=== PATIENT | female | born 1970 | race Caucasian/White ===

== ENCOUNTER 2023-11-06 13:35 | Emergency (ER) | payer SELFPAY ==
[2023-11-06 13:41] VITALS: BP 96/68; PULSE 68; RESP 16; TEMP 36.7; O2SAT 98; BMI 21.3
[2023-11-06 13:42] VITALS: BP 126/74; PULSE 82; O2SAT 94
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
--- NOTE | 2023-11-06 14:02 | PC.NURSE ---
Patient's belongings brought to [facility] by security.
--- NOTE | 2023-11-06 15:17 | PC.NURSE ---
pt resting, resp even/unlabored.
[2023-11-06 18:00] VITALS: BP 119/86; PULSE 63; RESP 18; TEMP 36.6; O2SAT 98
[2023-11-06 20:00] VITALS: BP 115/80; PULSE 60; RESP 14; TEMP 36.5; O2SAT 98
--- NOTE | 2023-11-06 20:13 | MHC.EDTECH ---
This tech took over care of patient at 1900,rounds and vitals completed,patient was given a sandwich and ate 100%, patient is resting comfortably at this time.
[2023-11-07 08:27] VITALS: BP 168/100; PULSE 85; RESP 16; TEMP 36.9; O2SAT 98
--- NOTE | 2023-11-07 08:34 | PC.NURSE ---
Pt sleeping in rojo bed since this rn arrival at 7am. Was woken for discharge but fell back asleep. no complain of headache.
[2023-11-07 10:02] VITALS: BP 169/102; PULSE 99; RESP 20; TEMP 36.7; O2SAT 99
== END 2023-11-07 10:03 | disposition home or self-care (01) ==
PROVIDERS: Emergency Provider Emergency Medicine Emergency Medical Services
DX: F19.10 Other psychoactive substance abuse, uncomplicated (principal); F10.10 Alcohol abuse, uncomplicated; Y90.9 Presence of alcohol in blood, level not specified
CPT/HCPCS: 99284

== ENCOUNTER 2024-09-08 16:51 | Inpatient (IN) | payer MEDICAID, SELFPAY ==
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
--- NOTE | ~2024-09-08 | CT_ITS ---
CLINICAL HISTORY: Plateau fracture CT left knee without contrast Comparison: Left knee x-rays 09/08/2024 at 4:18 p.m. Findings: There is an acute comminuted depressed lateral tibial plateau fracture with maximum depression of the anterior aspect of the lateral tibial plateau of 1 cm. There is a fracture line extending to the anterolateral proximal tibial metaphysis. No evidence of dislocation. No acute fractures involving distal aspect of the femur, proximal aspect of the fibula or the patella. No dislocation. No degenerative changes. Moderately large joint effusion with fluid fat level consistent with lipohemarthrosis. Impression: 1. Comminuted depressed lateral tibial plateau fracture with no dislocation. 2. Knee joint lipohemarthrosis. This document has been electronically signed by: Shahnaz Boyle MD on 09/08/2024 22:19:07
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
[2024-09-08 16:56] VITALS: BP 131/77; BP 157/95; PULSE 64; RESP 18; TEMP 36.7; O2SAT 98; BMI 18.4
[2024-09-08 17:46] VITALS: BP 128/81; PULSE 67; RESP 14; TEMP 36.5; O2SAT 97
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
[2024-09-08 18:24] VITALS: BP 128/81; PULSE 67; RESP 14; TEMP 36.5; O2SAT 97
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
[2024-09-08 19:01] LABS: MANUAL DIFF FLAG NO
[2024-09-08 19:11] VITALS: BP 191/101; PULSE 64; RESP 20; TEMP 36.8; O2SAT 99
[2024-09-08 19:17] LABS: Anion Gap 13 (12-20); Blood Urea Nitrogen 10 mg/dL (9-16); Calcium 9.3 mg/dL (8.4-10.2); Carbon Dioxide 25 mmol/L (22-29); Chloride 106 mmol/L (96-108); Creatinine Clr Calc Pharmacy 82.1; Estimated Glomerular Filt Rate > 60; Potassium 5.0 mmol/L (3.3-5.1); Sodium 139 mmol/L (135-145)
[2024-09-08 19:19] LABS: Hematocrit 39.2 % (37.0-47.0); Hemoglobin 12.4 g/dl (12.0-16.0); Imm Gran Abs Auto 0.02 X10*3/uL (0.00-0.03); Imm Gran Pct Auto 0.3 % (0.0-0.4); Lymphocytes Absolute Auto 2.0 X10*3/uL (1.2-4.9); Mean Corpuscular HGB Conc 31.6 g/dl (31.0-35.0); Mean Corpuscular Hemoglobin 28.5 pg (27.0-33.0); Mean Corpuscular Volume 90.1 fL (80.0-98.0); NRBC Abs Auto 0.000 X10*3/uL (0.0-0.012); NRBC Pct Auto 0.0 /100WBC (0.0-0.2); Platelet Count 308 X10*3/uL (160-400); Red Blood Count 4.35 X10*6/uL (4.20-5.50); White Blood Count 7.3 X10*3/uL (4.8-10.8)
[2024-09-08] MEDS: iohexoL 350 MG/ML 100 ML INFUS..BTL 85 ML IV (19:53)
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
[2024-09-08 22:54] VITALS: BP 194/105; PULSE 64; RESP 20; TEMP 37.3; O2SAT 98
[2024-09-09] VITALS (16 sets, daily range): BP systolic 142–210; BP diastolic 87–122; PULSE 61–86; RESP 16–19; TEMP 37.1–37.5; O2SAT 97–100; BMI 15.1
--- NOTE | 2024-09-09 | ECG_ITS ---
Test Reason : DrElicia Requested Blood Pressure : */* mmHG Vent. Rate : 70 BPM Atrial Rate : 70 BPM P-R Int : 130 ms QRS Dur : 90 ms QT Int : 438 ms P-R-T Axes : -12 3 -2 degrees QTcB Int : 473 ms Normal sinus rhythm Moderate voltage criteria for LVH, may be normal variant ( R in aVL , Sokolow-Martinez ) Cannot rule out Inferior infarct , age undetermined Abnormal ECG No previous ECGs available Referred By: Sharon Deleon Electronically Signed By: JANY GAITAN
[2024-09-09] MEDS: 0.9 % Sodium Chloride Flush 3 ML SYRINGE IVFLUSH ×3 (00:06→16:17)
--- NOTE | 2024-09-09 01:35 | PC.NURSE ---
pt medicated according to mar with iv antibiotics per dr smith pt does not need blood cultures prior to antibiotic administration dr smith made aware of bp 187/106 no new orders at this time
[2024-09-09 04:31] LABS: Hematocrit 38.8 % (37.0-47.0); Hemoglobin 12.9 g/dl (12.0-16.0); Imm Gran Abs Auto 0.09 X10*3/uL (0.00-0.03); Imm Gran Pct Auto 0.5 % (0.0-0.4); Lymphocytes Absolute Auto 0.6 X10*3/uL (1.2-4.9); MANUAL DIFF FLAG SCAN; Mean Corpuscular HGB Conc 33.2 g/dl (31.0-35.0); Mean Corpuscular Hemoglobin 28.5 pg (27.0-33.0); Mean Corpuscular Volume 85.7 fL (80.0-98.0); NRBC Abs Auto 0.000 X10*3/uL (0.0-0.012); NRBC Pct Auto 0.0 /100WBC (0.0-0.2); Platelet Count 375 X10*3/uL (160-400); Red Blood Count 4.53 X10*6/uL (4.20-5.50); SCAN SMEAR FLAG 1; White Blood Count 18.0 X10*3/uL (4.8-10.8)
--- NOTE | 2024-09-09 04:46 | MHC.EDTECH ---
security placed belongings on shelf 1
[2024-09-09 04:48] LABS: Anion Gap 15 (12-20); Blood Urea Nitrogen 8 mg/dL (9-16); Calcium 9.0 mg/dL (8.4-10.2); Carbon Dioxide 21 mmol/L (22-29); Chloride 101 mmol/L (96-108); Creatinine Clr Calc Pharmacy 93.4; Estimated Glomerular Filt Rate > 60; Potassium 4.0 mmol/L (3.3-5.1); Sodium 133 mmol/L (135-145)
--- NOTE | 2024-09-09 04:59 | PC.NURSE ---
Dev Technical Mgr obtained pt belongings from ED staff. Pt belongings placed in 4th floor lockers.
--- NOTE | 2024-09-09 06:23 | PC.NURSE ---
b/p 189/105, aware with no new orders.
--- NOTE | 2024-09-09 06:50 | PC.NURSE ---
Pt medicated pr MAR for elevated b/p. Pt denies headache.
--- NOTE | 2024-09-09 07:14 | PC.NURSE ---
pt currently sleeping, rr equal/non labored, vitals currently stable, BP has gone down to 142/87, call chamberlain within reach, plan of care ongoing
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
--- NOTE | 2024-09-09 10:09 | PHA.MEDREC ---
Addendum entered by Trisha Pino RPh 09/09/24 10:32: Reviewed Original Note: Pharmacy Consult ? Medication Reconciliation Pharmacy has completed the medication reconciliation.
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
[2024-09-09] MEDS: Lactated Ringers 1,000 ML 100 ML IVCONT ×2 (10:24→19:33)
--- NOTE | 2024-09-09 12:25 | PC.NURSE ---
Bedside nurse swallow evaluation ordered, unable to obtain at this time as pt is lethargic and drowsy MD Maya aware.
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
--- NOTE | 2024-09-09 15:59 | PC.NURSE ---
Addendum entered by Annalisa Parish RN 09/09/24 16:50: 30 minutes post IVP hydrazine BP 170/110 manually. Original Note: MD Ortiz made aware pts BP is elevated 15:26 210/122 HR 86, at 15:55 BP 188/110. Pt continues to be drowsy, alertness waxes and wanes, at times pt is alert to voice opens eyes and says a few words, other times pt alert to light touch on chest and voice. Pt was able to wake up and verbalize she had to void, used the bedpan and then fell back to sleep. Ordered PRN IVP Hydralazine and PO Amlodipine, unable to administer amlodipine at this point as pt is to drowsy. All safety measures in place.
[2024-09-09 16:23] LABS: Cannabinoid Screen Urine Not Detected (Not Detect)
[2024-09-10] VITALS (9 sets, daily range): BP systolic 160–180; BP diastolic 82–115; PULSE 90–108; RESP 18–20; TEMP 36.6–37.5; O2SAT 95–100
[2024-09-10] MEDS: 0.9 % Sodium Chloride Flush 3 ML SYRINGE IVFLUSH (00:46)
[2024-09-10 05:44] LABS: MANUAL DIFF FLAG NO
[2024-09-10 05:50] LABS: Hematocrit 39.8 % (37.0-47.0); Hemoglobin 13.8 g/dl (12.0-16.0); Imm Gran Abs Auto 0.06 X10*3/uL (0.00-0.03); Imm Gran Pct Auto 0.4 % (0.0-0.4); Lymphocytes Absolute Auto 0.8 X10*3/uL (1.2-4.9); Mean Corpuscular HGB Conc 34.7 g/dl (31.0-35.0); Mean Corpuscular Hemoglobin 28.2 pg (27.0-33.0); Mean Corpuscular Volume 81.2 fL (80.0-98.0); NRBC Abs Auto 0.000 X10*3/uL (0.0-0.012); NRBC Pct Auto 0.0 /100WBC (0.0-0.2); Platelet Count 365 X10*3/uL (160-400); Red Blood Count 4.90 X10*6/uL (4.20-5.50); White Blood Count 13.8 X10*3/uL (4.8-10.8)
[2024-09-10 06:18] LABS: Anion Gap 16 (12-20); Blood Urea Nitrogen 11 mg/dL (9-16); Calcium 9.0 mg/dL (8.4-10.2); Carbon Dioxide 21 mmol/L (22-29); Chloride 99 mmol/L (96-108); Creatinine Clr Calc Pharmacy 76.2; Estimated Glomerular Filt Rate > 60; Potassium 3.6 mmol/L (3.3-5.1); Sodium 132 mmol/L (135-145)
[2024-09-10] MEDS: Lactated Ringers 1,000 ML 100 ML IVCONT (06:36)
--- NOTE | 2024-09-10 07:19 | PC.NURSE ---
0715 when doing bedside safety checks this RN noted to find 850ml of yellow bilious vomit in bedside wash basin. Pt continues to be lethargic, opens eyes to voice and light touch, BP continues to be elevated, temp 99.4 orally. All safety measures in place. MD Deleon made aware via tiger text.
[2024-09-10 07:54] LABS: Alanine Aminotransferase 13 U/L (0-31); Albumin Level 3.8 g/dL (3.5-5.0); Alkaline Phosphatase 59 U/L (39-117); Aspartate Amino Transferase 22 U/L (5-31); Total Protein 6.9 g/dL (6.5-8.0)
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
[2024-09-10 08:03] LABS: VBG HCO3 23 mmol/L (22-26); VBG O2 % Saturation 100.0 %
[2024-09-10 08:03] LABS: Ammonia 46 umol/L (13-55)
[2024-09-10 08:04] LABS: Venous Blood Gas Refer to POC result
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
--- NOTE | 2024-09-10 10:55 | MHC.SLORD ---
Speech Language Pathology Order Status: BEATER ROOM HELPER to assess when pt able to participate. Pt remains lethargic and had episode of vomiting. See RN note.
--- NOTE | 2024-09-10 11:36 | PHA.PROG ---
Admission Date/Time: September 08, 2024 21:53 Indication: COMMUNITY ENGAGEMENT COORDINATOR infection Weight in k.6 kg Adjusted body weight in Kg: [place] body weight in Kg: Obesity Dosing Indication % IBW: Serum Creatinine - Last 168 Hours 09/08/24 09/09/24 09/10/24 18:57 04:25 05:18 Creatinine 0.66 0.58 0.58 Estimated CrCl and GFR - Last 168 Hours 09/08/24 09/09/24 09/10/24 18:57 04:25 05:18 Estim Creat Clear Calc 82.1 93.4 76.2 Estimated GFR > 60 > 60 > 60 Vancomycin Loading Dose: 1000mg x 1 Current Vancomycin Dosing Regimen: 750 mg Q12H Vancomycin Monitoring using AUC goal of 400 - 600 range with trough as surrogate marker: 475 mg/L Date and Time for next Vancomycin Level to be drawn: 09/11 @2100 Pharmacist Comments on Vancomycin Plan: Predicted trough of 14mg/L Vancomycin dosing will take advantage of [employer] as a clinical decision support tool that uses Bayesian modeling to calculate individual patient's pharmacokinetic parameters and forecast the patient's drug concentration time course with the target goal AUC 24 range of 400 - 600 mg/L/hr.
--- NOTE | 2024-09-10 12:29 | PC.NURSE ---
Addendum entered by Annalisa Parish RN 09/10/24 12:43: Pt was able to take liquid Methadone PO without complications. Original Note: Pt has been following basic commands. Was able to open eyes and take water from a spoon. Pt was able to hold water in mouth and swallow without prompting, no coughing noted, MD Ortiz aware, ok to give pt PO methadone.
[2024-09-10] MEDS: methADONE HCl 20 MG/2 ML ORAL.CONC 10 MG PO (12:38)
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
--- NOTE | 2024-09-11 00:26 | PC.NURSE ---
This RN assumed care of patient at 19:00. Patient was sleeping when I came in for assessment, respirations even & unlabored. She is very somnolent, only arousable to touch and name, when asking questions patient smiles and nods her head but no verbal response and goes right back to sleep. Patient able to turn herself in bed. Telesitter in place for safety.
[2024-09-11 05:46] LABS: MANUAL DIFF FLAG NO
[2024-09-11 05:51] LABS: Hematocrit 35.7 % (37.0-47.0); Hemoglobin 12.0 g/dl (12.0-16.0); Imm Gran Abs Auto 0.05 X10*3/uL (0.00-0.03); Imm Gran Pct Auto 0.5 % (0.0-0.4); Lymphocytes Absolute Auto 1.0 X10*3/uL (1.2-4.9); Mean Corpuscular HGB Conc 33.6 g/dl (31.0-35.0); Mean Corpuscular Hemoglobin 28.4 pg (27.0-33.0); Mean Corpuscular Volume 84.6 fL (80.0-98.0); NRBC Abs Auto 0.000 X10*3/uL (0.0-0.012); NRBC Pct Auto 0.0 /100WBC (0.0-0.2); Platelet Count 335 X10*3/uL (160-400); Red Blood Count 4.22 X10*6/uL (4.20-5.50); White Blood Count 11.1 X10*3/uL (4.8-10.8)
[2024-09-11 06:04] LABS: Anion Gap 11 (12-20); Blood Urea Nitrogen 17 mg/dL (9-16); Calcium 8.4 mg/dL (8.4-10.2); Carbon Dioxide 20 mmol/L (22-29); Chloride 108 mmol/L (96-108); Creatinine Clr Calc Pharmacy 73.7; Estimated Glomerular Filt Rate > 60; Potassium 3.3 mmol/L (3.3-5.1); Sodium 136 mmol/L (135-145)
[2024-09-11 06:57] VITALS: BP 150/90; PULSE 92; RESP 16; TEMP 38.1; O2SAT 98
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
[2024-09-11 09:20] VITALS: TEMP 37.1
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
[2024-09-11 09:56] VITALS: BMI 17.9
[2024-09-11 09:58] VITALS: BMI 17.9
--- NOTE | 2024-09-11 10:15 | MHC.CLN ---
NUTRITION CURRENTLY NPO. DIFFICULTY STAYING AWAKE. QUALIFIES MODERATELY MALNOURISHED IN THE CONTEXT OF SOCIAL BEHAVIORAL CIRCUMSTANCES. MILD DEPLETION OF BODY FAT AND MUSCLE MASS NOTED. WEIGHT WITH SOFT SPLINT=51.8 KG, BMI=17.9. POOR PO REPORTED PRIOR TO ADM AND NPO SINCE ADM. SKIN WITH BLISTERS TO RIGHT THIRD TOE. FOLLOW FOR DIET ADVANCEMENT AND PLAN OF CARE. SEE CLINICAL NUTRITION ASSESSMENT 09/11/24.
--- NOTE | 2024-09-11 10:28 | MHC.SL.SWA ---
Speech Pathologist Impression: Missing dentition but no oral phase issues. Oropharyngeal swallow WNL Risk of Aspiration Due to: Lethargy Dysphasia Diet Status: Recc REGULAR diet with THIN liquids, assist with setup if needed, TRANSITION COACH followup 2-3x as indicated Liquid Consistency and Strategies for Safe Swallow: Liquid Intake Recommendation: Thin Liquid Intake Strategies: Solid Food Consistency: Dietary Recommendations: Regular Additional Modifications to Solid Foods: Oral Medication Intake: Whole with Liquid Please contact the pharmacy regarding appropriate crushable or liquid drug formulations that are available whenever modified delivery is recommended. Compensatory Strategies and Precautions to be Taken for Safe Swallow: Supervision While Eating and Drinking for Safe Swallow: Intermittent Supervision Foods to Avoid: Swallowing Recommended Treatments: Recommendation for Speech: Inpatient Speech Therapy Comment: Oropharyngeal coordination unremarkable; despite missing dentition, oral prep phase adequate for bolus formation/manipulation. Pharyngeal swallow timely and efficient. No overt s/s of aspiration observed during bedside swallow evaluation as pt tolerated regular solids and thin liquids efficiently. CXR concerning for aspiration PNA upon admission; TRANSITION COACH will follow to monitor. Frequency/Duration: Followup 2-3x to assess for PO tolerance and adjust diet if indicated Date Range for Service Req: Timeline to reassess: Business Functional Analyst Clinican/Clinical Fellow: No Supervisory Statement: I have reviewed and agree with the student/clinical fellow's documentation: N/A Speech Language Pathologist: Mckayla Oconnell M.S., [facility]-TRANSITION COACH
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
[2024-09-11 15:22] VITALS: BP 159/95; PULSE 96; RESP 16; TEMP 36.7; O2SAT 96
--- NOTE | 2024-09-11 21:33 | HE.PHANOTE ---
KATHIE Changed dosing to 750mg Q8H per subtherapeutic trough. New predicted trough 15.1, AUC 535. Next trough to be drawn 09/12 @1999.
[2024-09-12] VITALS: BP 142/77; PULSE 75; RESP 18; TEMP 36.6; O2SAT 97
[2024-09-12 06:37] LABS: Creatinine Clr Calc Pharmacy 95.5; Estimated Glomerular Filt Rate > 60
[2024-09-12 07:33] VITALS: BP 155/95; PULSE 82; RESP 18; TEMP 36.6; O2SAT 100
[2024-09-12] MEDS: 0.9 % Sodium Chloride Flush 3 ML SYRINGE IVFLUSH ×3 (08:03→22:08)
[2024-09-12] MEDS: methADONE HCl 20 MG/2 ML ORAL.CONC 10 MG PO ×2 (09:38→18:07)
--- NOTE | 2024-09-12 11:59 | HO.SKINPHOTO ---
Location: 3rd right toe - open to air
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
--- NOTE | 2024-09-12 13:46 | MHC.SL.SWA ---
Risk of Aspiration Due to: PNA Dysphasia Diet Status: regular/thin Liquid Consistency and Strategies for Safe Swallow: Liquid Intake Recommendation: Thin Solid Food Consistency: Dietary Recommendations: Regular Oral Medication Intake: Whole with Liquid Please contact the pharmacy regarding appropriate crushable or liquid drug formulations that are available whenever modified delivery is recommended. Compensatory Strategies and Precautions to be Taken for Safe Swallow: Sitting Upright (90 deg) Supervision While Eating and Drinking for Safe Swallow: Intermittent Supervision Recommendation for Speech: Inpatient Speech Therapy Comment: Oropharyngeal coordination unremarkable; despite missing dentition, oral prep phase adequate for bolus formation/manipulation. Pharyngeal swallow timely and efficient. No overt s/s of aspiration observed during bedside swallow evaluation on 09/11 and [facility] f/u on 09/12 as pt tolerated regular solids and thin liquids efficiently. CXR concerning for aspiration PNA upon admission; [facility] will follow to monitor. Frequency/Duration: Followup 1-2x to assess for PO tolerance and adjust diet if indicated Rail Filler Clinican/Clinical Fellow: No Supervisory Statement: I have reviewed and agree with the student/clinical fellow's documentation: N/A Speech Language Pathologist: Denise Nuñez M.A., CCC-[facility]
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
[2024-09-12 15:05] VITALS: BP 114/77; PULSE 81; RESP 12; TEMP 36.6; O2SAT 98
[2024-09-12 23:27] VITALS: BP 119/82; PULSE 67; RESP 18; TEMP 36.8; O2SAT 98
[2024-09-13 06:33] LABS: Creatinine Clr Calc Pharmacy 99.2; Estimated Glomerular Filt Rate > 60
[2024-09-13 07:41] VITALS: BP 127/84; PULSE 69; RESP 17; TEMP 37.1; O2SAT 99
[2024-09-13] MEDS: methADONE HCl 20 MG/2 ML ORAL.CONC 10 MG PO (08:28)
[2024-09-13] MEDS: 0.9 % Sodium Chloride Flush 3 ML SYRINGE IVFLUSH (08:32)
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
--- NOTE | 2024-09-13 10:53 | MHC.SLORD ---
Speech Language Pathology Order Status: Pt tolerating regular diet, no dysphagia present. Pt is edentulous but able to formulate bolus with regular solids, choosing preferred foods. No further [employer] tx indicated. Pt in agreement with d/c from [employer].
[2024-09-13] MEDS: methADONE HCl 20 MG/2 ML ORAL.CONC PO (11:47)
[2024-09-13] MEDS: Naloxone HCl Nasal TAKE HOME 4 MG SPRAY 8 MG NOSTRILALT (12:58)
[2024-09-18 00:59] LABS: VDRL Qualitative CSF Nonreactive (Nonreactive)
== END 2024-09-13 13:15 | disposition home or self-care (01) | DRG 342 ==
LOC: HO.ED 22:49 → HO.EDOVER 22:52 → HO.S3 09-09 08:28
PROVIDERS: Student in an Organized Health Care Education/Training Program; Admitting Provider Student in an Organized Health Care Education/Training Program; Emergency Provider Emergency Medicine Emergency Medical Services; PCP Internal Medicine; Visit Provider Nurse Practitioner Acute Care
DX: S82.142A Displaced bicondylar fracture of left tibia, initial encounter for closed fracture (principal); J69.0 Pneumonitis due to inhalation of food and vomit; G92.8 Other toxic encephalopathy; E44.0 Moderate protein-calorie malnutrition; I10 Essential (primary) hypertension; F11.93 Opioid use, unspecified with withdrawal; R91.1 Solitary pulmonary nodule; V03.00XA Pedestrian on foot injured in collision with car, pick-up truck or van in nontraffic accident, initial encounter; Y92.414 Local residential or business street as the place of occurrence of the external cause; Z68.1 Body mass index [BMI] 19.9 or less, adult
CPT/HCPCS: 36415; 62328; 70450; 71260; 72125; 73562; 73700; 74177; 80048; 80053; 80202; 80307; 82140; 82565; 82803; 82945; 83605; 84157; 85025; 86592; 86850; 86900; 86901; 87015; 87040; 87070; 87205; 92526; 92610; 93005; 97110; 97116; 97162; 97166; 97530; 97535; 99285; J0360; J0696; J1171; J1650; J1956; J2405; J3370; J7120; Q9967

== ENCOUNTER → 2024-09-08 17:20 | Outpatient (BNV) | payer SELFPAY | PROVIDERS: Emergency Provider Emergency Medicine Emergency Medical Services; PCP Internal Medicine; Visit Provider Specialist | DX: R91.8 Other nonspecific abnormal finding of lung field (principal); G89.11 Acute pain due to trauma; S82.121A Displaced fracture of lateral condyle of right tibia, initial encounter for closed fracture | CPT/HCPCS: 70450; 71260; 72125; 73562; 73700; 74177 ==

== ENCOUNTER 2024-09-08 21:53 | Outpatient (BNV) | payer SELFPAY | END 2024-09-11 10:45 | PROVIDERS: Admitting Provider Student in an Organized Health Care Education/Training Program; Emergency Provider Emergency Medicine Emergency Medical Services; PCP Internal Medicine; Visit Provider Radiology Diagnostic Radiology | DX: R41.82 Altered mental status, unspecified (principal); R11.10 Vomiting, unspecified | CPT/HCPCS: 62328 ==

== ENCOUNTER 2024-09-08 21:53 | Outpatient (BNV) | payer SELFPAY | END 2024-09-09 10:37 | PROVIDERS: Admitting Provider Student in an Organized Health Care Education/Training Program; Emergency Provider Emergency Medicine Emergency Medical Services; PCP Internal Medicine; Visit Provider Internal Medicine | DX: R94.31 Abnormal electrocardiogram [ECG] [EKG] (principal); Z13.6 Encounter for screening for cardiovascular disorders | CPT/HCPCS: 93010 ==

== ENCOUNTER 2024-09-08 21:53 | Outpatient (BNV) | payer SELFPAY | END 2024-09-10 08:20 | PROVIDERS: Admitting Provider Student in an Organized Health Care Education/Training Program; Emergency Provider Emergency Medicine Emergency Medical Services; PCP Internal Medicine; Visit Provider Radiology Diagnostic Radiology | DX: R41.82 Altered mental status, unspecified (principal) | CPT/HCPCS: 70450 ==

== ENCOUNTER → 2024-09-08 21:53 | Outpatient (BNV) | payer SELFPAY | PROVIDERS: Admitting Provider Student in an Organized Health Care Education/Training Program; Emergency Provider Emergency Medicine Emergency Medical Services; PCP Internal Medicine | DX: S82.142A Displaced bicondylar fracture of left tibia, initial encounter for closed fracture (principal) | CPT/HCPCS: 99222; 99232 ==

== ENCOUNTER → 2024-09-08 21:53 | Outpatient (BNV) | payer SELFPAY | PROVIDERS: Admitting Provider Student in an Organized Health Care Education/Training Program; Emergency Provider Emergency Medicine Emergency Medical Services; PCP Internal Medicine; Visit Provider Nurse Practitioner Psychiatric/Mental Health | DX: F11.90 Opioid use, unspecified, uncomplicated (principal) | CPT/HCPCS: 99222 ==

== ENCOUNTER → 2024-09-08 21:53 | Outpatient (BNV) | payer SELFPAY | PROVIDERS: Admitting Provider Student in an Organized Health Care Education/Training Program; Emergency Provider Emergency Medicine Emergency Medical Services; PCP Internal Medicine; Visit Provider Student in an Organized Health Care Education/Training Program | DX: S82.142A Displaced bicondylar fracture of left tibia, initial encounter for closed fracture (principal); G92.8 Other toxic encephalopathy; F19.10 Other psychoactive substance abuse, uncomplicated | CPT/HCPCS: 99222; 99233 ==

== ENCOUNTER 2024-09-18 13:17 | Emergency (ER) | payer MEDICAID, SELFPAY ==
[2024-09-18] VITALS (8 sets, daily range): BP systolic 100–126; BP diastolic 56–91; PULSE 74–112; RESP 14–18; TEMP 36.6–37; O2SAT 95–100; BMI 15.1
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
--- NOTE | 2024-09-18 14:27 | ED.OVERDOSE ---
HPI - Overdose General Chief Complaint: Overdose Stated Complaint: HEROIN OVERDOSE, NARCAN GIVEN, W/GOOD RESULTS Time Seen by Provider: 09/18/24 13:35 Source: patient and EMS Mode of arrival: EMS Limitations: no limitations History of Present Illness ED Provider: DR. Martinez HPI Narrative: 54-year-old female with history of substance abuse found unresponsive in the street by bystander after possible OD on heroin patient was given 4 mg Narcan intranasally by bystander when EMS arrived patient was given 1 mg Narcan IV, patient admit to smoking 1 bag of heroin earlier today, patient is homeless and have been walking for many hours in the hot weather patient feels dehydrated and very thirsty, initially found to be hypotensive by EMS was given a L fluids, patient in the ED is drinking plenty of oral water (60 oz.) feels very thirsty. Blood pressure has improved, patient has no complaint of headache, no blurry vision, no CP, no SOB, no abdominal pain, no fever, no chills. Patient declined that she struck her head or neck. No SI, no HI, no hallucination. Related Data Previous Rx's ?Medication ?Instructions ?Recorded amlodipine 10 mg tablet 10 mg PO DAILY #30 tabs 09/13/24 oxycodone 5 mg tablet 5 mg PO Q8H PRN pain #15 tabs 09/13/24 Allergies Allergy/AdvReac Type Severity Reaction Status Date / Time No Known Allergies (No Known Allergy Verified 09/18/24 13:42 Allergies*) Review of Systems Review of Systems: All other systems are reviewed and are negative Constitutional: Reports as per HPI and Reports no additional constitutional complaints Eyes: Reports as per HPI and Reports no additional eye complaints Reports system reviewed and no additional complaints, except as documented Cardiovascular: Reports as per HPI and Reports no additional cardiovascular complaints Respiratory: Reports as per HPI and Reports no additional respiratory complaints Gastrointestinal: Reports as per HPI and Reports no additional gastrointestinal complaints Genitourinary: Reports no additional female genitourinary complaints Musculoskeletal: Reports no additional musculoskeletal complaints Skin/Breast: Reports system reviewed and no additional complaints, except as docu Psychiatric: Reports no additional psychiatric complaints Endocrine: Reports no additional endocrine complaints Hematologic/Lymphatic: Reports no additional hematologic/lymphatic complaints Allergic/Immunologic: Reports no additional allergic/immunologic complaints Reports system reviewed and no additional complaints, except as documented and Reports Abnormal speech present PMFSH Past Medical History Medical History Alcohol abuse Active substance abuse Social History Social History Housing: Homeless Alcohol intake: current Comment: bedfast currently Patient Tobacco Use Status: Tobacco use Unknown Smoked in Last 30 Days: Yes Use of substances other than those prescribed or required for medical reasons: Yes Substance Use Type: Heroin Advance Directives: No Advance Directives Information Provided: Yes Do you have a plan to hurt others: No Plan Patient : No Physical Exam Vital Signs: Vital Signs: Last Vital Signs Temp 98.6 F 09/18/24 15:08 Pulse 81 09/18/24 15:08 Resp 16 09/18/24 15:08 BP 113/78 09/18/24 15:08 Pulse Ox 95 09/18/24 15:08 O2 Del Method Room Air 09/18/24 15:08 BMI result Body Mass Index 15.1 Vital signs have been reviewed and appear to be correct. Blood pressure elevated. Heart rate normal. Respiratory rate normal. Temperature normal. Oxygen saturation normal. Appearance: Alert. Oriented X3. No acute distress. Head: Normal external exam. Normocephalic. Atraumatic. No Coyne signs noted. No raccoon eyes noted Eyes: PERRLA. EOMI. Conjunctiva and sclera normal. Eyelids normal. ENT: TM's Normal. Pharynx normal. Uvula midline. Moist mucous membranes. No trismus noted. No drooling noted. No muffled voice noted. Neck: Normal inspection. Neck supple. FROM. No adenopathy. Thyroid Normal. No meningeal signs. No neck mass noted. CVS: Normal heart rate and rhythm. Heart sound normal. No murmurs noted. Pulses normal throughout. Respiratory: No respiratory distress. Painless inspiration. Breath sounds normal. No wheezes/rales/rhonchi noted. Chest nontender. No accessory muscle usage noted or decreased air movement noted. Abdomen: Soft and nontender. Bowel sounds normal in all 4 quadrants. No distention noted. No organomegaly noted. No visible injury noted. Back: No CVA tenderness. Full range of motion noted. Skin: Skin warm and dry. Normal skin color. Normal skin turgor. No rashes/lesions/lacerations noted. Extremities: No lower extremity edema. Extremities exhibit normal range of motion. Extremities nontender. Neuro: Oriented X 3. Cranial nerve exam: II-XII are grossly intact No motor deficit. No sensory deficit. Reflexes normal. Course Reevaluation(s) Reevaluation #1: 54-year-old female brought in by EMS after OD on heroin, patient has no SI or HI, patient declined recovery team effort to detox. Patient thinks she was dehydrated patient is homeless staying with her friend for now has not been eating or drinking enough, the patient drank plenty of fluids in the ED improvement of blood pressure after dehydration, no chest pain, no abdominal pain, no SI, no HI. Patient is requesting to be discharged. Was given Narcan to take home. Time: 15:42 Medical Decision Making Differential Diagnosis Differential Diagnoses: The differential diagnosis associated with the presentation includes (Dehydration, electrolyte derangement, severe anemia, heroin overdose, head injury.) Admission/Observation Consideration of admission/observation: Escalation of care including admission/observation considered Discharge Plan Discharge Clinical Impression: Active substance abuse, Drug overdose, Acute dehydration Patient Disposition: Home, Self-Care Instructions: Adult Overdose (ED), Dehydration (ED) Additional Instructions: Drink plenty of fluids Prescriptions: No Action amlodipine 10 mg Tablet 10 mg PO DAILY Qty: 30 0RF Protocol: Hold for SBP< HOLD for SBP < : 90 oxycodone 5 mg tablet 5 mg PO Q8H PRN (Reason: pain) Qty: 15 0RF Rx Instructions: Partial Fill upon patient request. Referrals: Juancho Farias MD [Primary Care Provider, Internal Medicine] Print Language: Hungarian
--- NOTE | 2024-09-18 14:32 | MHC.EDTECH ---
Patient was changed over,security at bedside,all belongings secured and locked in the [facility] shelf 1. Patient has her cane at bedside, crack pipe taken by security.
--- OUTSIDE RECORDS SUMMARY | 2024-09-18 14:49 | XMS_ITS | Clinical Summary ---
Author Organization [facility] Address [address] [place] [address] Care Team Providers Care Carpenter Helper Name Role Phone Jolie Mcgrath NP Primary Care Provider [phone] Source Comments PLEASE NOTE, if this patient is a minor, it may be UNLAWFUL to discuss sensitive information that is contained in these records (such as FAMILY PLANNING, MENTAL HEALTH or SUBSTANCE ABUSE) with the minor patient's parent or other person without the patient's specific authorization.[facility] Allergies No known active allergies Medications diazepam (VALIUM) 5 mg tablet Take 5 mg by mouth 2 (two) times daily as needed. Active zolpidem (AMBIEN) 10 mg tablet Take 10 mg by mouth nightly at bedtime as needed. Take immediately before bedtime. Active oxyCODONE-acetamin ophen (ROXICET) 5-325 mg/5 mL solutionIndication s:pain Take 5 mL by mouth every 4 (four) hours as needed. Indications: Pain Active traZODone (DESYREL) 150 mg tablet Take 150 mg by mouth nightly at bedtime. Active albuterol sulfate hfa (PROVENTIL HFA) 90 mcg/actuation inhalerIndications :SOB (shortness of breath) Inhale 2 Puffs into the lungs every 4 (four) hours as needed for shortness of breath or wheezing. 1 Inhaler 0 01/18/20 13 Active clonazePAM (KLONOPIN) 1 mg tabletIndications: anxiety Take 1 mg by mouth 2 (two) times daily as needed. Indications: anxiety Active FLUoxetine (PROZAC) 40 mg capsuleIndications :major depressive disorder Take 40 mg by mouth once daily. Indications: Major Depressive Disorder Active QUEtiapine (SEROQUEL) 100 mg tabletIndications: voices Take 100 mg by mouth nightly at bedtime. Indications: voices Active dextromethorphan-g uaiFENesin (ROBITUSSIN DM) 10-100 mg/5 mL liquidIndications: Cough Take 5 mL by mouth every 4 to 6 (four to six) hours as needed for cough. 1 Bottle 1 05/09/19 14 Active gabapentin (NEURONTIN) 800 mg tabletIndications: Displacement of intervertebral disc, site unspecified, without myelopathy Take 1 Tab by mouth 3 (three) times daily. 90 Tab 2 06/15/19 14 Active fluticasone (FLONASE) 50 mcg/actuation nasal sprayIndications:R rosy Place 2 Sprays into the nostril(s) once daily. 16 g 2 07/14/19 14 Active Active Problems Problem Noted Date Diagnosed Date Displacement of intervertebr al disc, site unspecified, without myelopathy 02/14/2013 Arthritis of ankle 02/14/2013 Anxiety and depression 11/24/2012 Lumbar disc disease 07/04/2009 Chronic low back pain Family History Medical History Relation Name Comments Diabetes Brother Heart Problems Brother Hypertension Brother Hypertension Father Diabetes Mother Hypertension Mother Mental illness Mother Hypertension Sister Relation Name Status Comments Brother Father Mother Sister Social History Tobacco Use Types Packs/Day Years Used Date Smoking Tobacco: Every Day Cigarettes 3 7 Smokeless Tobacco: Never Alcohol Use Standard Drinks/Week Comments No 0 (1 standard drink = 0.6 oz pur e alcohol) Comments No Sex and Gender Information Value Date Recorded Sex Assigned at Not on file Legal Sex Female 5:19 AM PDT Gender Identity Not on file Sexual Orientation Not on file Last Filed Vital Signs Vital Sign Reading Time Taken Comments Blood Pressure 119/74 05/09/2013 3:29 PM EST Pulse 65 05/09/2013 3:29 PM EST Temperature 36.6 C (97.8 F) 05/09/2013 3:29 PM EST Respiratory Rate 16 02/14/2013 3:28 PM EST Oxygen Saturation - - Inhaled Oxygen Concentration - - Weight 80.3 kg (177 lb) 05/09/2013 3:29 PM EST Height 170.2 cm (5' 7 ) 05/09/2013 3:29 PM EST Body Mass Index 27.72 05/09/2013 3:29 PM EST Plan of Treatment Not on file Insurance [place] MEDICA[place] Care Teams Carpenter Helper Relationship Specialty Start Date End Date Jolie Mcgrath NP [phone] [place] [id number] PCP - General Internal Medicine 11/24/12
--- NOTE | 2024-09-18 15:17 | MHC.CARE ---
CARE Team met with Pt after consulted for a SUDE secondary to opiate overdose. Pt was sleeping and was easily stirred awake for a conversation. She denied wanting to participate in a SUDE, she also declined wanting services/resources for recovery. Case was discussed with ED provider.
[2024-09-18] MEDS: Naloxone HCl Nasal TAKE HOME 4 MG SPRAY 8 MG NOSTRILALT (16:09)
--- NOTE | 2024-09-18 16:18 | PC.NURSE ---
pt given take home nasal narcan, pt to discharge home, tech to get pts belongings and she will discharge.
== END 2024-09-18 16:40 | disposition home or self-care (01) ==
PROVIDERS: Emergency Provider Emergency Medicine; PCP Internal Medicine
DX: T40.1X1A Poisoning by heroin, accidental (unintentional), initial encounter (principal); Y92.9 Unspecified place or not applicable; E86.0 Dehydration; Z71.51 Drug abuse counseling and surveillance of drug abuser
CPT/HCPCS: 99284